=== PATIENT | female | born 1950 | race Caucasian/White ===

== ENCOUNTER 2018-11-01 08:30 | Inpatient (IN) | payer OTHER ==
[~2018-11-01] VITALS: Ht 157.5 cm; Wt 57.6 kg
[~2018-11-01 08:30] MED LIST: ATORVASTATIN CA10 MG PO; GABAPENTIN300 MG PO; GEMFIBROZIL600 MG PO; GLUCOPHAGE XR500 MG PO; METFORMIN HCL850 MG PO; PROTONIX40 MG PO; SYNTHROID137 MCG PO; [UNRECOGNIZED DRUG - OTHER] PO
[2018-11-06] MEDS ORDERED: AMBIEN10 MG PO (08:20)
[2018-11-08] MEDS ORDERED: GAS RELIEF125 MG PO (07:07)
[2018-11-08] MEDS ORDERED: IBUPROFEN800 MG PO (07:07)
[2018-11-08] MEDS ORDERED: POLY119PG PO (07:07)
[2018-11-08] MEDS ORDERED: NEURONTIN300 MG PO (07:07)
== END 2018-11-08 08:56 | disposition home or self-care, planned readmission (81) | DRG 743 ==
LOC: OB/GYN 11-06 07:19 → O/R 11-06 07:19 → OB/GYN 11-06 08:30
PROVIDERS: Obstetrics & Gynecology
PROC: 0UT20ZZ Resection of Bilateral Ovaries, Open Approach (ICD-10-PCS; 2018-11-06)
PROC: 0UN20ZZ Release Bilateral Ovaries, Open Approach (ICD-10-PCS; 2018-11-06)
PROC: 0UT70ZZ Resection of Bilateral Fallopian Tubes, Open Approach (ICD-10-PCS; principal; 2018-11-06 08:30)
DX: N83.202 Unspecified ovarian cyst, left side (principal); N83.311 Acquired atrophy of right ovary; N73.6 Female pelvic peritoneal adhesions (postinfective); E11.9 Type 2 diabetes mellitus without complications; I10 Essential (primary) hypertension